=== PATIENT | female | born 1975 | race Caucasian/White ===

== ENCOUNTER 2024-02-23 06:17 | Day surgery (SDC) | payer OTHER, SELFPAY ==
--- NOTE | 2024-02-18 15:09 | PTCARENOTE ---
Spoke with Glenn- medical appointment scheduler @ [place], requested updated MAR. Showering and preop instructions faxed to facility as requested. Provided followup call to verify info was recv'd- Glenn not available- requested call back on 02/18 for verification.
[2024-02-23] VITALS (11 sets, daily range): BP systolic 88–112; BP diastolic 27–68; BMI 27.8
[2024-02-23 09:04] LABS: Hemoglobin 10.2 g/dL (12.0-16.0); Mean Corp Hgb Conc. 32.9 g/dL (33.0-37.0); Mean Corpuscular Hgb 28.7 pg (27.0-31.0); Mean Corpuscular Volume 87.1 fL (81.0-99.0); Mean Platelet Volume 10.6 fL (7.4-10.4); Platelet Count 180 10^3/uL (130-400); Red Blood Cell Count 3.56 10^6/uL (4.20-5.40); Red Cell Dist. Width 16.4 % (11.5-14.5); White Blood Cell Count 9.2 10^3/uL (4.8-10.8)
[2024-02-23 09:13] LABS: INR 0.97; PT 12.7 Sec (11.4-14.6)
[2024-02-23 09:20] LABS: ALT (SGPT) 29 U/L (0-35); AST (SGOT) 18 U/L (14-36); Albumin 3.4 g/dl (3.5-5.0); Alkaline Phosphatase 104 U/L (38-126); Blood Urea Nitrogen 27 mg/dl (7-17); Calcium 8.6 mg/dl (8.4-10.2); Carbon Dioxide 22 mmol/L (22-30); Chloride 108 mmol/L (98-107); Estimated Creatinine Clearance 72 ml/min; Glucose 89 mg/dl (70-99); Potassium 4.2 mmol/L (3.5-5.1); Sodium 140 mmol/L (135-145); Total Bilirubin 0.2 mg/dl (0.2-1.3); Total Protein 6.5 g/dl (6.3-8.2); eGFR > 60.00
== END 2024-02-23 14:00 ==
LOC: SDS 06:17
PROVIDERS: ATTENDING PHYSICIAN Urology
DX: N39.3 Stress incontinence (female) (male) (principal); N36.41 Hypermobility of urethra; N31.9 Neuromuscular dysfunction of bladder, unspecified
CPT/HCPCS: 57288; 80053; 85027; 85610; 85730; 93005; C1771; J0585

== ENCOUNTER 2024-04-20 11:14 | Outpatient (RCR) | payer MEDICARE, OTHER, SELFPAY | END 2024-04-20 23:59 | disposition home or self-care (01) | LOC: RPT 11:14 | PROVIDERS: ATTENDING PHYSICIAN Internal Medicine; FAMILY PHYSICIAN Surgery | DX: I89.0 Lymphedema, not elsewhere classified (principal); Z73.6 Limitation of activities due to disability; M79.605 Pain in left leg; I69.344 Monoplegia of lower limb following cerebral infarction affecting left non-dominant side | CPT/HCPCS: 97016; 97140; 97162; 97530 ==

== ENCOUNTER 2024-05-16 08:21 | Outpatient (RCR) | payer MEDICARE, OTHER, SELFPAY | END 2024-05-16 23:59 | disposition home or self-care (01) | LOC: RPT 08:21 | PROVIDERS: ATTENDING PHYSICIAN Internal Medicine; FAMILY PHYSICIAN Surgery | DX: I89.0 Lymphedema, not elsewhere classified (principal); Z73.6 Limitation of activities due to disability | CPT/HCPCS: 97110 ==

== ENCOUNTER 2024-08-23 06:04 | Day surgery (SDC) | payer MEDICARE, MEDICAID, SELFPAY ==
[2024-08-23] VITALS (11 sets, daily range): BP systolic 89–107; BP diastolic 57–94; BMI 29.1
[2024-08-23 07:12] LABS: Hematocrit 33.6 % (37.0-47.0); Hemoglobin 10.5 g/dL (12.0-16.0); Mean Corp Hgb Conc. 31.3 g/dL (33.0-37.0); Mean Corpuscular Hgb 28.7 pg (27.0-31.0); Mean Corpuscular Volume 91.8 fL (81.0-99.0); Mean Platelet Volume 10.2 fL (7.4-10.4); Platelet Count 231 10^3/uL (130-400); Red Blood Cell Count 3.66 10^6/uL (4.20-5.40); Red Cell Dist. Width 15.8 % (11.5-14.5); White Blood Cell Count 7.6 10^3/uL (4.8-10.8)
[2024-08-23] MEDS: SUBLIMAZE 50 MCG IV ×2 (08:22→08:55)
[2024-08-23] MEDS: TYLENOL 650 MG PO (09:42)
== END 2024-08-23 10:25 | disposition home or self-care (01) ==
LOC: SDS 06:04
PROVIDERS: ATTENDING PHYSICIAN Urology
DX: N39.3 Stress incontinence (female) (male) (principal); N31.9 Neuromuscular dysfunction of bladder, unspecified
CPT/HCPCS: 51715; 52287; 51705; 85027; J0585; L8606

== ENCOUNTER 2024-10-06 06:25 | Day surgery (SDC) | payer MEDICARE, OTHER, SELFPAY ==
[2024-10-06] VITALS (11 sets, daily range): BP systolic 89–117; BP diastolic 45–92; BMI 29.5
[2024-10-06 11:29] LABS: Hematocrit 34.3 % (37.0-47.0); Hemoglobin 10.4 g/dL (12.0-16.0); Mean Corp Hgb Conc. 30.3 g/dL (33.0-37.0); Mean Corpuscular Hgb 26.9 pg (27.0-31.0); Mean Corpuscular Volume 88.9 fL (81.0-99.0); Mean Platelet Volume 10.8 fL (7.4-10.4); Platelet Count 177 10^3/uL (130-400); Red Blood Cell Count 3.86 10^6/uL (4.20-5.40); Red Cell Dist. Width 19.6 % (11.5-14.5); White Blood Cell Count 6.8 10^3/uL (4.8-10.8)
[2024-10-06 11:33] LABS: ALT (SGPT) 22 U/L (0-35); AST (SGOT) 27 U/L (14-36); Albumin 3.6 g/dl (3.5-5.0); Alkaline Phosphatase 120 U/L (38-126); Blood Urea Nitrogen 40 mg/dl (7-17); Carbon Dioxide 30 mmol/L (22-30); Chloride 107 mmol/L (98-107); Glucose 98 mg/dl (70-99); Potassium 4.3 mmol/L (3.5-5.1); Sodium 140 mmol/L (135-145); Total Bilirubin 0.3 mg/dl (0.2-1.3); Total Protein 6.8 g/dl (6.3-8.2); eGFR > 60.00
[2024-10-06] MEDS: SUBLIMAZE 50 MCG IV ×2 (14:37→14:53)
[2024-10-06] MEDS: ROXICODONE 10 MG PO (16:42)
== END 2024-10-06 17:05 | disposition home or self-care (01) ==
LOC: SDS 06:25
PROVIDERS: ATTENDING PHYSICIAN Urology
DX: N31.9 Neuromuscular dysfunction of bladder, unspecified (principal)
CPT/HCPCS: 51040; 80053; 85027; 93005

== ENCOUNTER → 2025-03-24 13:13 | Outpatient (REF) | payer MEDICARE, OTHER, SELFPAY | LOC: RAD 13:13 | PROVIDERS: ATTENDING PHYSICIAN Urology; FAMILY PHYSICIAN Internal Medicine | DX: R33.8 Other retention of urine (principal); N32.81 Overactive bladder | CPT/HCPCS: 76770 ==